=== PATIENT | male | born 1940 ===

== ENCOUNTER → 2016-12-11 | Outpatient (REF) | payer MEDICARE, MEDICAID ==
[2016-12-11 15:27] LABS: FOLATE 17.6 NG/ML (>5.4)
[2016-12-16 08:11] LABS: VITAMIN E LEVEL 8.1 mg/L (5.3-17.5)
== END ==
LOC: M LABNEURO 13:56
PROVIDERS: ATTEND Psychiatry & Neurology Neurology
DX: E03.9 Hypothyroidism, unspecified (principal); G60.9 Hereditary and idiopathic neuropathy, unspecified; E53.8 Deficiency of other specified B group vitamins